=== PATIENT | male | born 1995 | race Caucasian/White ===

== ENCOUNTER → 2022-11-06 17:14 | Outpatient (BNVA) | payer OTHER, SELFPAY | PROVIDERS: Visit Provider Nurse Practitioner Family | DX: R07.81 Pleurodynia (principal); E03.9 Hypothyroidism, unspecified | CPT/HCPCS: 80053; 80061; 83721; 84439; 84443; 85025 ==

== ENCOUNTER 2022-11-07 08:57 | Outpatient (CLI) | payer OTHER, SELFPAY ==
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
== END 2022-11-07 08:58 | disposition home or self-care (01) ==
PROVIDERS: PCP Nurse Practitioner Family; Visit Provider Nurse Practitioner Family
DX: R07.81 Pleurodynia (principal)
CPT/HCPCS: 71101

== ENCOUNTER 2022-12-06 06:02 | Outpatient (CLI) | payer OTHER, SELFPAY ==
--- NOTE | 2022-12-06 06:15 | US_ITS ---
WS: [id number] THYROID ULTRASOUND HISTORY: E03.9 - Hypothyroidism, unspecified COMPARISON: None available. Right lobe: 2.3 cm x 2.2 cm x 6.3 cm (w x ap x l). Volume: 16.9 cm3. Moderately enlarged very heterogeneous thyroid. Echogenic septa throughout with ill-defined nodularit y. Very mild but diffuse increased vascularity. Left lobe: 3.0 cm x 3.0 cm x 6.5 cm (w x ap x l). Volume: 29.9 cm3. Markedly enlarged thyroid. There are multiple ill-defined nodules. Some of these contain large cystic component. There is diffuse increased echogenicity. Thick fibrous echogenic septa. Isthmus: 0.7 cm. US/US thyroid [id number] IMPRESSION: 1. Abnormal thyroid. Enlarged thyroid with increased vascularity. Ultrasound f indings are consistent with Annabel's thyroiditis. 2. Multiple ill-defined nodules throughout the gland. There is no well formed localized nodule.
== END 2022-12-06 06:03 | disposition home or self-care (01) ==
PROVIDERS: PCP Nurse Practitioner Family; Visit Provider Nurse Practitioner Family
DX: E03.9 Hypothyroidism, unspecified (principal)
CPT/HCPCS: 76536

== ENCOUNTER → 2022-12-24 09:14 | Outpatient (BNVA) | payer OTHER, SELFPAY | PROVIDERS: PCP Nurse Practitioner Family; Visit Provider Nurse Practitioner Family | DX: E06.9 Thyroiditis, unspecified (principal) | CPT/HCPCS: 84439; 84443; 84481; 86376 ==

== ENCOUNTER → 2023-02-07 15:02 | Outpatient (BNVA) | payer OTHER, SELFPAY | PROVIDERS: PCP Nurse Practitioner Family; Visit Provider Nurse Practitioner Family | DX: E03.9 Hypothyroidism, unspecified (principal) | CPT/HCPCS: 84439; 84481; 86376 ==

== ENCOUNTER → 2023-02-15 10:55 | Outpatient (BNVA) | payer OTHER, SELFPAY | PROVIDERS: PCP Nurse Practitioner Family; Referring Provider Nurse Practitioner Family; Visit Provider Internal Medicine | DX: E03.9 Hypothyroidism, unspecified (principal); K59.00 Constipation, unspecified; R63.5 Abnormal weight gain; E04.2 Nontoxic multinodular goiter; E03.8 Other specified hypothyroidism; E06.3 Autoimmune thyroiditis | CPT/HCPCS: 84439; 84443 ==

== ENCOUNTER → 2023-04-16 09:27 | Outpatient (BNVA) | payer OTHER, SELFPAY | PROVIDERS: PCP Nurse Practitioner Family; Visit Provider Internal Medicine | DX: E03.9 Hypothyroidism, unspecified (principal) | CPT/HCPCS: 36415; 84439; 84443 ==

== ENCOUNTER → 2023-05-20 14:57 | Outpatient (BNVA) | payer OTHER, SELFPAY | PROVIDERS: PCP Nurse Practitioner Family; Visit Provider Nurse Practitioner Family | DX: J02.9 Acute pharyngitis, unspecified (principal) | CPT/HCPCS: 87880 ==

== ENCOUNTER → 2023-06-28 10:42 | Outpatient (BNVA) | payer OTHER, SELFPAY | PROVIDERS: PCP Nurse Practitioner Family; Visit Provider Internal Medicine | DX: E03.9 Hypothyroidism, unspecified (principal); E06.3 Autoimmune thyroiditis | CPT/HCPCS: 84439; 84443 ==

== ENCOUNTER → 2023-09-03 12:56 | Outpatient (BNVA) | payer OTHER, SELFPAY | PROVIDERS: PCP Nurse Practitioner Family; Visit Provider Internal Medicine | DX: E03.9 Hypothyroidism, unspecified (principal); E04.2 Nontoxic multinodular goiter | CPT/HCPCS: 84439; 84443 ==

== ENCOUNTER 2023-11-22 12:31 | Outpatient (CLI) | payer OTHER, SELFPAY ==
[2023-11-22 12:58] LABS: Add Urine Microscopic? NO; Charge for UA Resulting for Rev
[2023-11-22 13:08] LABS: Bilirubin Urine Neg (Negative); Blood Urine Neg (Negative); Glucose Urine UA Norm (Normal); Ketones Urine Negative (Negative); Leukocyte Esterase Urine Negative (Negative); Nitrate Urine Negative (Negative); Protein Urine Neg (Negative); Specific Gravity, Urine 1.015 (1.005-1.030); Urine Appearance Clear (CLEAR); Urine Color Yellow (Yellow); Urobilinogen Urine Norm (Negative); pH Urine 5 (5-7)
[2023-11-22 13:28] LABS: Anion Gap 13.5 (5-19); Blood Urea Nitrogen 9 mg/dL (6-20); Calcium 9.1 mg/dL (8.5-10.5); Carbon Dioxide 25 mmol/L (22-29); Chloride 102 mmol/L (98-107); Free T4 Free Thyroxine 1.34 ng/dL (0.82-1.77); Glomerular Filtration Rate 114.3 mL/min (90-130); Glucose 98 mg/dL (65-115); Osmolality Calculated 281 mOsm/kg (285-295); Potassium 4.5 mmol/L (3.5-5.1); Sodium 136 mmol/L (136-145); Thyroid Stimulating Hormone 7.33 uIU/mL (0.27-4.20)
== END 2023-11-22 12:32 | disposition home or self-care (01) ==
LOC: LAB 12:32
PROVIDERS: PCP Nurse Practitioner Family; Visit Provider Internal Medicine
DX: E03.9 Hypothyroidism, unspecified (principal); E04.2 Nontoxic multinodular goiter; E03.8 Other specified hypothyroidism; E06.3 Autoimmune thyroiditis
CPT/HCPCS: 36415; 80048; 81003; 84439; 84443

== ENCOUNTER 2024-01-06 09:01 | Outpatient (CLI) | payer OTHER, SELFPAY ==
[2024-01-06 10:18] LABS: Free T4 Free Thyroxine 1.38 ng/dL (0.82-1.77); Thyroid Stimulating Hormone 11.71 uIU/mL (0.27-4.20)
== END 2024-01-06 09:02 | disposition home or self-care (01) ==
LOC: LAB 09:02
PROVIDERS: PCP Nurse Practitioner Family; Visit Provider Internal Medicine
DX: E03.9 Hypothyroidism, unspecified (principal); E04.2 Nontoxic multinodular goiter; E03.8 Other specified hypothyroidism; E06.3 Autoimmune thyroiditis
CPT/HCPCS: 36415; 84439; 84443

== ENCOUNTER → 2024-03-05 09:08 | Outpatient (BNVA) | payer OTHER, SELFPAY | PROVIDERS: PCP Nurse Practitioner Family; Visit Provider Internal Medicine | DX: E03.9 Hypothyroidism, unspecified (principal); E04.2 Nontoxic multinodular goiter; E03.8 Other specified hypothyroidism; E06.3 Autoimmune thyroiditis | CPT/HCPCS: 84439; 84443 ==

== ENCOUNTER 2024-05-19 11:26 | Outpatient (CLI) | payer OTHER, SELFPAY ==
[2024-05-19 12:26] LABS: Chol HDL Ratio 5.21 mg/dL (1.0-5.00); Cholesterol 177 mg/dL (0-200); Free T4 Free Thyroxine 1.73 ng/dL (0.82-1.77); HDL Cholesterol 34 mg/dL (60-100); LDL Cholesterol Calculated 101 mg/dL (50-129); LDL HDL Ratio 2.97 RATIO (0.00-3.22); Thyroid Stimulating Hormone 5.41 uIU/mL (0.27-4.20); Triglycerides 212 mg/dL (0-150)
== END 2024-05-19 11:27 | disposition home or self-care (01) ==
LOC: LAB 11:28
PROVIDERS: PCP Nurse Practitioner Family; Visit Provider Internal Medicine
DX: E03.9 Hypothyroidism, unspecified (principal); E04.2 Nontoxic multinodular goiter
CPT/HCPCS: 36415; 80061; 84439; 84443

== ENCOUNTER → 2024-07-15 15:54 | Outpatient (BNVA) | payer OTHER, SELFPAY | PROVIDERS: PCP Nurse Practitioner Family; Visit Provider Nurse Practitioner | DX: R10.9 Unspecified abdominal pain (principal); J10.1 Influenza due to other identified influenza virus with other respiratory manifestations | CPT/HCPCS: 87400 ==

== ENCOUNTER 2024-07-30 11:56 | Outpatient (CLI) | payer OTHER, SELFPAY ==
[2024-07-30 13:32] LABS: Free T4 Free Thyroxine 1.37 ng/dL (0.82-1.77); Testosterone Total 203.4 ng/dL (249-836); Thyroid Stimulating Hormone 10.36 uIU/mL (0.27-4.20)
== END 2024-07-30 11:57 | disposition home or self-care (01) ==
LOC: LAB 12:01
PROVIDERS: PCP Nurse Practitioner Family; Visit Provider Internal Medicine
DX: E03.9 Hypothyroidism, unspecified (principal); E04.2 Nontoxic multinodular goiter; R63.5 Abnormal weight gain; E78.5 Hyperlipidemia, unspecified
CPT/HCPCS: 36415; 84402; 84403; 84439; 84443

== ENCOUNTER 2024-08-04 11:33 | Outpatient (CLI) | payer OTHER, SELFPAY ==
--- NOTE | 2024-08-04 11:45 | US_ITS ---
WS: [id number] THYROID ULTRASOUND HISTORY: multiple thyroid nodules COMPARISON: 12/06/2022 Right lobe: 1.6 cm x 1.9 cm x 4.5 cm (w x ap x l). Volume: 6.5 cm3. Thyroid gland is measuring smaller on today's examination. There is still marked heterogeneity throughout the gland. There is a hyperechoic nodule in the mid gland measuring 0.7 x 0.8 x 1.0 cm. There are no hypoechoic nodules or echogenic foci identified. Thick echogenic fibrous septa and pseudo nodules are identified. Vascularity has decreased since 2022. Left lobe: 1.9 cm x 2.2 cm x 5.1 cm (w x ap x l). Volume: 10.3 cm3. Thyroid gland is measuring smaller as compared to the most recent study. There is still marked heterogeneity throughout the gland. No well circumscribed hypoechoic nodules are identified. Vascularity has decreased since the prior study. Prominent fibrous septa. Isthmus: 0.3 cm. US/US thyroid [id number] IMPRESSION: 1. Thyroid has decreased in size with less vascularity as compared to 2022. Fi ndings are most consistent with Annabel's thyroiditis. There is no discrete c oncerning hypoechoic nodule.
== END 2024-08-04 11:34 | disposition home or self-care (01) ==
PROVIDERS: PCP Nurse Practitioner Family; Visit Provider Internal Medicine
DX: E04.2 Nontoxic multinodular goiter (principal); E03.9 Hypothyroidism, unspecified; R93.89 Abnormal findings on diagnostic imaging of other specified body structures
CPT/HCPCS: 76536

== ENCOUNTER → 2024-08-13 09:59 | Outpatient (BNVA) | payer OTHER, SELFPAY | PROVIDERS: PCP Nurse Practitioner Family; Visit Provider Internal Medicine | DX: E78.5 Hyperlipidemia, unspecified (principal); E03.8 Other specified hypothyroidism; E06.3 Autoimmune thyroiditis; E04.2 Nontoxic multinodular goiter; R63.5 Abnormal weight gain; E11.9 Type 2 diabetes mellitus without complications | CPT/HCPCS: 36415; 80053; 82306; 83001; 83002; 84146; 84403; 85025 ==

== ENCOUNTER 2024-10-08 07:57 | Outpatient (CLI) | payer OTHER, SELFPAY ==
[2024-10-08 08:49] LABS: Basophils # 0.1 10^3/uL (0.0-0.1); Basophils % 1.2 %; Eosinophils # 0.3 10^3/uL (0.0-0.8); Eosinophils % 4.9 %; Hematocrit 50.4 % (37-53); Lymphocytes # 2.6 10^3/uL (0.8-4.8); Lymphocytes % 38.4 %; Mean Corpuscular HGB Conc 32.1 g/dL (30-55); Mean Corpuscular Hemoglobin 29.2 pg (27-33); Mean Corpuscular Volume 90.8 fl (82-101); Mean Platelet Volume 10.6 fL (7.4-10.4); Monocytes # 0.6 10^3/uL (0.2-0.9); Monocytes % 9.3 %; Neutrophils # 3.16 10^3/uL (1.8-7.7); Neutrophils % 46.1 %; Nucleated Red Blood Cells % 0 %; Platelet Count 233 10^3/cmm (157-399); Red Blood Count 5.55 10^6/uL (3.85-5.65); Red Cell Distribution Width 12.3 % (12.1-15.1); White Blood Count 6.87 10^3/uL (3.29-11.43)
[2024-10-08 09:17] LABS: Alanine Aminotransferase 34 U/L (0-41); Albumin Level 4.6 g/dL (3.5-5.2); Alkaline Phosphatase 68 U/L (40-130); Anion Gap 12.7 (5-19); Aspartate Amino Transferase 22 U/L (0-40); Blood Urea Nitrogen 14 mg/dL (6-20); Calcium 9.4 mg/dL (8.5-10.5); Carbon Dioxide 30 mmol/L (22-29); Chloride 103 mmol/L (98-107); Chol HDL Ratio 5.42 mg/dL (1.0-5.00); Cholesterol 168 mg/dL (0-200); Free T4 Free Thyroxine 1.86 ng/dL (0.82-1.77); Glomerular Filtration Rate 99.1 mL/min (90-130); Glucose 147 mg/dL (65-115); HDL Cholesterol 31 mg/dL (60-100); LDL Cholesterol Calculated 108 mg/dL (50-129); LDL HDL Ratio 3.48 RATIO (0.00-3.22); Osmolality Calculated 295 mOsm/kg (285-295); Potassium 4.7 mmol/L (3.5-5.1); Prostate Specific Antigen 0.705 ng/mL (0-4); Sodium 141 mmol/L (136-145); Thyroid Stimulating Hormone 0.15 uIU/mL (0.27-4.20); Total Bilirubin 0.4 mg/dL (0.15-1.2); Total Protein 7.6 g/dL (6.6-8.7); Triglycerides 146 mg/dL (0-150)
[2024-10-08 10:34] LABS: Testosterone Total 333.5 ng/dL (249-836)
== END 2024-10-08 07:58 | disposition home or self-care (01) ==
PROVIDERS: PCP Nurse Practitioner Family; Visit Provider Internal Medicine
DX: E78.5 Hyperlipidemia, unspecified (principal); E03.8 Other specified hypothyroidism; E06.3 Autoimmune thyroiditis; Z12.5 Encounter for screening for malignant neoplasm of prostate; E11.9 Type 2 diabetes mellitus without complications; R79.89 Other specified abnormal findings of blood chemistry
CPT/HCPCS: 36415; 80053; 80061; 84153; 84403; 84439; 84443; 85025

== ENCOUNTER 2024-11-06 08:38 | Outpatient (CLI) | payer OTHER, SELFPAY ==
[2024-11-06 09:04] LABS: Basophils # 0.1 10^3/uL (0.0-0.1); Eosinophils # 0.5 10^3/uL (0.0-0.8); Eosinophils % 5.1 %; Lymphocytes # 3.1 10^3/uL (0.8-4.8); Lymphocytes % 33.2 %; Mean Corpuscular HGB Conc 33.2 g/dL (30-55); Mean Corpuscular Hemoglobin 29.5 pg (27-33); Mean Platelet Volume 10.6 fL (7.4-10.4); Monocytes # 0.9 10^3/uL (0.2-0.9); Monocytes % 9.5 %; Neutrophils # 4.79 10^3/uL (1.8-7.7); Nucleated Red Blood Cells % 0 %; Platelet Count 230 10^3/cmm (157-399); Red Blood Count 5.62 10^6/uL (3.85-5.65); Red Cell Distribution Width 12.3 % (12.1-15.1); White Blood Count 9.39 10^3/uL (3.29-11.43)
[2024-11-06 09:37] LABS: Albumin Level 4.5 g/dL (3.5-5.2); Alkaline Phosphatase 73 U/L (40-130); Anion Gap 14.4 (5-19); Aspartate Amino Transferase 23 U/L (0-40); Blood Urea Nitrogen 11 mg/dL (6-20); Calcium 9.5 mg/dL (8.5-10.5); Carbon Dioxide 28 mmol/L (22-29); Chloride 100 mmol/L (98-107); Chol HDL Ratio 5.03 mg/dL (1.0-5.00); Cholesterol 166 mg/dL (0-200); Free T4 Free Thyroxine 1.76 ng/dL (0.82-1.77); Globulin 3.2 g/dL (1.3-4.6); Glomerular Filtration Rate 99.1 mL/min (90-130); Glucose 102 mg/dL (65-115); HDL Cholesterol 33 mg/dL (60-100); LDL Cholesterol Calculated 86 mg/dL (50-129); LDL HDL Ratio 2.61 RATIO (0.00-3.22); Osmolality Calculated 286 mOsm/kg (285-295); Potassium 4.4 mmol/L (3.5-5.1); Sodium 138 mmol/L (136-145); Testosterone Total 691.6 ng/dL (249-836); Thyroid Stimulating Hormone 0.69 uIU/mL (0.27-4.20); Total Bilirubin 0.4 mg/dL (0.15-1.2); Total Protein 7.7 g/dL (6.6-8.7); Triglycerides 235 mg/dL (0-150)
[2024-11-06 09:48] LABS: Alanine Aminotransferase 35 U/L (0-41)
== END 2024-11-06 08:39 | disposition home or self-care (01) ==
PROVIDERS: PCP Nurse Practitioner Family; Visit Provider Internal Medicine
DX: E03.8 Other specified hypothyroidism (principal); E06.3 Autoimmune thyroiditis; R79.89 Other specified abnormal findings of blood chemistry; E78.5 Hyperlipidemia, unspecified; E11.9 Type 2 diabetes mellitus without complications
CPT/HCPCS: 80053; 80061; 84403; 84439; 84443; 85025

== ENCOUNTER 2025-01-07 08:58 | Outpatient (CLI) | payer OTHER, SELFPAY ==
[2025-01-07 09:39] LABS: Hematocrit 47.5 % (37-53); Hemoglobin 15.60 g/dL (11.27-16.99); Mean Corpuscular HGB Conc 32.8 g/dL (30-55); Mean Corpuscular Hemoglobin 29.2 pg (27-33); Mean Corpuscular Volume 89.0 fl (82-101); Nucleated Red Blood Cells % 0 %; Platelet Count 234 10^3/cmm (157-399); Red Blood Count 5.34 10^6/uL (3.85-5.65); White Blood Count 8.98 10^3/uL (3.29-11.43)
[2025-01-07 10:13] LABS: Alanine Aminotransferase 32 U/L (0-41); Albumin Level 4.4 g/dL (3.5-5.2); Alkaline Phosphatase 81 U/L (40-130); Anion Gap 15.3 (5-19); Aspartate Amino Transferase 21 U/L (0-40); Blood Urea Nitrogen 14 mg/dL (6-20); Calcium 9.2 mg/dL (8.5-10.5); Carbon Dioxide 25 mmol/L (22-29); Chloride 103 mmol/L (98-107); Cholesterol 178 mg/dL (0-200); Free T4 Free Thyroxine 1.60 ng/dL (0.82-1.77); Globulin 2.9 g/dL (1.3-4.6); Glucose 102 mg/dL (65-115); HDL Cholesterol 35 mg/dL (60-100); Osmolality Calculated 289 mOsm/kg (285-295); Potassium 4.3 mmol/L (3.5-5.1); Sodium 139 mmol/L (136-145); Thyroid Stimulating Hormone 3.78 uIU/mL (0.27-4.20); Total Protein 7.3 g/dL (6.6-8.7); Triglycerides 197 mg/dL (0-150)
== END 2025-01-07 08:59 | disposition home or self-care (01) ==
LOC: LAB 09:03
PROVIDERS: PCP Nurse Practitioner Family; Visit Provider Internal Medicine
DX: R79.89 Other specified abnormal findings of blood chemistry (principal); E78.5 Hyperlipidemia, unspecified; E03.8 Other specified hypothyroidism; E06.3 Autoimmune thyroiditis; E11.9 Type 2 diabetes mellitus without complications
CPT/HCPCS: 36415; 80053; 80061; 84403; 84439; 84443; 85025

== ENCOUNTER 2025-04-21 08:42 | Outpatient (CLI) | payer OTHER, SELFPAY ==
[2025-04-21 09:30] LABS: Hematocrit 47.8 % (37-53); Hemoglobin 16.10 g/dL (11.27-16.99); Mean Corpuscular HGB Conc 33.7 g/dL (30-55); Mean Corpuscular Hemoglobin 30.8 pg (27-33); Mean Corpuscular Volume 91.6 fl (82-101); Nucleated Red Blood Cells % 0 %; Platelet Count 211 10^3/cmm (157-399); Red Blood Count 5.22 10^6/uL (3.85-5.65); White Blood Count 7.75 10^3/uL (3.29-11.43)
[2025-04-21 10:11] LABS: Alanine Aminotransferase 34 U/L (0-41); Albumin Level 4.6 g/dL (3.5-5.2); Alkaline Phosphatase 68 U/L (40-130); Anion Gap 14.1 (5-19); Aspartate Amino Transferase 17 U/L (0-40); Blood Urea Nitrogen 13 mg/dL (6-20); Calcium 9.3 mg/dL (8.5-10.5); Carbon Dioxide 28 mmol/L (22-29); Chloride 102 mmol/L (98-107); Cholesterol 202 mg/dL (0-200); Free T4 Free Thyroxine 1.39 ng/dL (0.82-1.77); Globulin 2.7 g/dL (1.3-4.6); Glucose 142 mg/dL (65-115); HDL Cholesterol 40 mg/dL (60-100); Osmolality Calculated 291 mOsm/kg (285-295); Potassium 5.1 mmol/L (3.5-5.1); Sodium 139 mmol/L (136-145); Thyroid Stimulating Hormone 9.35 uIU/mL (0.27-4.20); Total Protein 7.3 g/dL (6.6-8.7); Triglycerides 86 mg/dL (0-150)
== END 2025-04-21 08:43 | disposition home or self-care (01) ==
LOC: LAB 08:44
PROVIDERS: PCP Nurse Practitioner Family; Visit Provider Internal Medicine
DX: R79.89 Other specified abnormal findings of blood chemistry (principal); E78.5 Hyperlipidemia, unspecified; R13.10 Dysphagia, unspecified; E03.8 Other specified hypothyroidism; E06.3 Autoimmune thyroiditis; E04.2 Nontoxic multinodular goiter; R63.5 Abnormal weight gain; K59.00 Constipation, unspecified; E03.9 Hypothyroidism, unspecified
CPT/HCPCS: 36415; 80053; 80061; 84403; 84439; 84443; 85025